=== PATIENT | female | born 1960 | race Caucasian/White ===

== ENCOUNTER 2024-07-15 14:41 | Outpatient (AMB) | payer OTHER, SELFPAY ==
[2024-07-15 14:51] VITALS: BP 138/80; PULSE 95; BMI 34.5
--- NOTE | 2024-07-15 14:51 | A.OFFVIS_ITS ---
Vital Signs 07/15/24 14:51 Height 5 ft 5 in Weight 207 lb 3.752 oz BMI 34.5 BP 138/80 Blood Pressure Location Lt brachial Position Sitting Pulse 95 Pulse Source Monitor Intake Visit Reasons: [employer]/Dr. Shoemaker/Abnormal stress test Allergies No Known Allergies Allergy (Verified 07/15/24 15:00) Medication List - Last Reconciled 07/15/24 by Esau Gomes MD amlodipine-valsartan 5-160 mg 1 tab PO DAILY aspirin 81 mg PO DAILY hyoscyamine sulfate 1 mL PO Q4-6H PRN meclizine 25 mg PO DAILY PRN rosuvastatin 20 mg PO DAILY tramadol 50 mg PO DAILY HPI Comments Details: Ivanna is here for consultation regarding an abnormal stress test. Patient herself does not have any known cardiac issues including coronary disease or myocardial infarction or cardiomyopathy. She states that she gets some occasional fluttering but no clear-cut symptoms like angina or shortness of breath. It seems that she underwent regadenoson perfusion imaging at [facility]. In that study, symptoms reported as transient lightheadedness and the baseline EKG was abnormal with a question of old anteroseptal infarct. Perfusion part reported to have possible small area of scar/infarct of the apical anterior wall. Hence she is referred here. On today's EKG however, she has a left bundle-branch block pattern. She is not aware of this. Otherwise, no clear-cut symptoms as described above. [facility] Medical History (Updated 07/15/24 @ 15:42 by Esau Gomes MD) Primary hypertension Surgical History (Updated 07/15/24 @ 15:04 by Tyra Melgar) H/O: hysterectomy H/O eye surgery H/O knee surgery Family History (Updated 07/15/24 @ 15:05 by Tyra Melgar) Mother Breast cancer Father No problems noted. Social History (Updated 07/15/24 @ 15:05 by Tyra Melgar) Alcohol intake: never Patient Tobacco Use Status: Never used Tobacco Review of Systems Const Denies weakness ENT Denies dizziness Card Denies chest pain with activity, Denies syncope, Denies rapid heart rate, Denies pedal edema, Denies edema, Denies leg edema, Denies lightheadedness, Reports palpitations, Denies dyspnea, Denies dyspnea on exertion and Denies orthopnea Resp Denies cough, Denies dyspnea and Denies dyspnea on exertion GI Denies hematochezia and Denies change in stool character Musc Denies abnormal gait, Denies muscle cramps, Denies muscle weakness, Denies numbness, Denies radiating pain into limb and Denies tingling Neuro Denies abnormal gait, Denies dizziness, Denies syncope, Denies numbness, Denies tingling and Denies weakness Endo Reports palpitations Physical Exam Vital Signs: Last Vital Signs Pulse 95 07/15/24 14:51 BP 138/80 07/15/24 14:51 BMI result Body Mass Index 34.5 Const General: comfortable and no acute distress Orientation/consciousness: patient oriented x3 HEENT Other: Unremarkable Head: Yes normal to inspection Neck Neck: Yes normal visual inspection Chest Chest palpation & inspection: normal inspection of the chest Resp Auscultation: clear to auscultation bilaterally Cardio Palpation: normal PMI Heart sounds: S1 normal heart sound present, S2 normal heart sound present, no gallops, Murmur heart sound present systolic II/ and no rubs GI Palpation (GI): Soft to palpation Back/Spine/Pelvis Other: unremarkable Skin General skin exam: no rashes or lesions noted Neuro General: patient oriented x3 Extrem General: Yes normal to inspection Psych Mental Status: mental status grossly normal Office Procedures EKG Details: EKG with underlying sinus rhythm, left bundle-branch block pattern. 95/Min. 05167-[id number], Complete Assessment & Plan Assessment & Plan (1) LBBB (left bundle branch block): Code(s): I44.7 - Left bundle-branch block, unspecified Category: Medical (2) Abnormal myocardial perfusion study: Code(s): R94.39 - Abnormal result of other cardiovascular function study Category: Medical (3) Primary hypertension: Code(s): I10 - Essential (primary) hypertension Category: Medical Plan In the EKG from 04/2024, sinus rhythm/left bundle-branch block. Today's EKG loo ks similar. Myocardial perfusion imaging study from [facility], 02/2024 shows possible scar/infarct apical anterior wall. No clear reversible defects. Gated LVEF was 64% at stress and 73% at rest. Overall, not clear if she has a true defect versus artifact. Findings discussed with patient. Especially with left bundle-branch block, it is appropriate to assess this further. We will get a coronary CTA for further evaluation. Patient agrees with that. We will also get an echocardiogram for aortic valve murmur. Follow-up after the above. Plan discussed with patient and she agrees. Orders: Orders Basic Metabolic Panel Today I44.7 - Left bundle-branch block, unspecified CT Cardiac Coronary Angio Today I25.10 - Atherosclerotic heart disease of [place] coronary artery without angina pectoris, I44.7 - Left bundle-branch block, unspecified CA echo transthoracic complete Today I44.7 - Left bundle-branch block, unspecified Coding Level of Care Code New Pt Level 4 (57153) Diagnoses LBBB (left bundle branch block) I44.7 Abnormal myocardial perfusion study R94.39 Primary hypertension I10 CPT Codes EKG - CPT: 21566-Muafjdiionejuwdxj, Complete ([id number])
== END 2024-07-15 15:28 | disposition home or self-care (01) ==
PROVIDERS: PCP Family Medicine; Visit Provider Internal Medicine
DX: I44.7 Left bundle-branch block, unspecified (principal); R94.39 Abnormal result of other cardiovascular function study; I10 Essential (primary) hypertension
CPT/HCPCS: 93010; 99204

== ENCOUNTER → 2024-07-15 14:41 | Outpatient (BNVA) | payer OTHER, SELFPAY | PROVIDERS: PCP Family Medicine; Visit Provider Internal Medicine | DX: I44.7 Left bundle-branch block, unspecified (principal); R94.39 Abnormal result of other cardiovascular function study; I10 Essential (primary) hypertension | CPT/HCPCS: 93005 ==

== ENCOUNTER → 2024-08-03 14:46 | Outpatient (REF) | payer OTHER, SELFPAY ==
--- NOTE | 2024-08-03 14:48 | CA_ITS ---
Transthoracic Echocardiogram Patient (Last, First, Middle): Ivanna Agudelo, Gender: Female Date of : 1960 Age: 64 Procedure Date: 08/03/2024 Procedure Type: Transthoracic Echocardiogram Location: OP Height: 165.1 cm Weight: 92.99 kg BSA: 2.00 m2 Heart Rate: bpm BP: 110 / 60 mmHg Assignment Desk Editor: Referring MD: Esau Gomes MD Symptoms: I44.7 - Left bundle-branch block, unspecified Study Quality: Adequate ECG Rhythm: Sinus, LBBB Conclusions: - The left ventricular systolic function is low normal. The visually estimated ejection fraction is between 50-55%. - There is moderate calcification of the aortic valve. There is mild aortic valve stenosis. Findings Procedure Information Contrast agent, definity, is being given per protocol without apparent complications. Left Ventricle Normal left ventricular cavity size. There is mildly increased left ventricular wall thickness. The left ventricular systolic function is low normal. The visually estimated ejection fraction is between 50-55%. There is paradoxical septal motion consistent with a left bundle branch block. Diastolic function is normal for age. Question of small apical septal/ apical aneurysm, but there is still contractility in that area. Hence could also be artifactual. Right Ventricle Mildly increased right ventricular cavity size. There is normal right ventricular systolic function. Atria The left atrium is moderately dilated. The right atrium is mildly dilated. Aortic Valve There is moderate calcification of the aortic valve. There is mild aortic valve stenosis. There is no aortic valve regurgitation. Mitral Valve The mitral valve appears normal. There is mild mitral annular calcification. There is trace mitral valve regurgitation. There is no mitral valve stenosis. Pulmonic Valve The pulmonic valve is likely normal. Tricuspid Valve There is mild tricuspid valve regurgitation. There is no evidence of pulmonary hypertension. Great Vessels The asc aorta is normal in size. Venous The inferior vena cava is normal in size and collapses greater than 50% with inspiration. Pericardium/Pleural There is no evidence of pericardial effusion. Prior Study Comparison No significant change compared to prior study dated: 11/03/2023. (performed at [facility]) Measurements 2D Linear Measurements IVSd: 1.09 0.6-0.9/0.6-1.0 cm LVIDd: 4.62 3.9-5.3/4.2-5.9 cm LVIDd Index: 2.31 2.4-3.2/2.2-3.1 cm/m2 LVIDs: 2.94 2.0-3.6 cm LVPWd: 1.09 0.7-1.1 cm Ao Root: 2.50 2.1-3.5 cm LA Diam: 5.30 2.7-3.8/3.0-4.0 cm LAIDs Index: 2.65 1.5-2.3 cm/m2 LV Mass: 224.45 67-162/88-224 g LV Mass Index: 112.23 43-95/49-115 g/m2 LVOT Diam: 2.00 3.0+(-)1.3 cm 2D Systolic Function EF 4C: 61.30 >55% EF 2C: 55.60 >55% EF BiP: 58.80 >55% Mitral Valve MV Pk E: 0.62 MV PK A: 0.80 MV Decel Time: 146.00 E/A: 0.80 E'Lateral: 9.68 E'Medial: 5.55 E/E' Med: 11.20 E/E' Lat: 6.40 PHT: 43.00 MVA PHT: 5.[address] [place]: 4.28 Aortic Valve AoV Pk Antoni: 2.49 AoV Mn Antoni: 1.66 AoV VTI: 0.59 AoV Pk Grad: 25.00 Aov Mn Grad: 13.00 GLADIS Cont.VTI: 1.56 LVOT LVOT Pk Antoni: 1.31 LVOT Mn Antoni: 0.94 LVOT VTI: 0.30 LVOT Pk Grad: 7.00 LVOT Mn Grad: 4.00 LVOT Diam: 2.00 LVOT Area: 3.14 Diastolic Function MV Pk E: 0.62 MV Pk A: 0.80 E/A: 0.80 E'Medial: 5.55 E/E' Med: 11.20 E' Laterial: 9.68 E/E' Lat: 6.40 Right Ventricle TAPSE (mm): 29.00 TVS' Antoni: 12.00 Tricuspid Valve TR Pk Antoni: 2.23 TR Pk Grad: 20.00 RA Press: 3.00 RVSP: 23.00 Great Vessels Aorta Ao Root-2D: 2.50 2.0-3.7 cm Ao Asc: 3.50 2.1-3.4 cm Pulmonary Valve PV Pk Antoni: 1.29 Peak PV Grad: 7.00 Updated in Other Vendor System with Status of Final Esau Gomes MD electronically signed on 08/04/2024 1:54:13 PM with status of Final
== END ==
LOC: HO.CARD 14:46
PROVIDERS: PCP Family Medicine; Visit Provider Internal Medicine
DX: I44.7 Left bundle-branch block, unspecified (principal)
CPT/HCPCS: 93306; Q9957

== ENCOUNTER → 2024-08-03 14:48 | Outpatient (BNV) | payer OTHER, SELFPAY | PROVIDERS: PCP Family Medicine; Visit Provider Internal Medicine | DX: I35.0 Nonrheumatic aortic (valve) stenosis (principal); I36.1 Nonrheumatic tricuspid (valve) insufficiency | CPT/HCPCS: 93306 ==

== ENCOUNTER 2024-09-05 09:36 | Outpatient (REF) | payer OTHER, SELFPAY ==
[2024-09-05 10:21] LABS: Anion Gap 10 (12-20); Blood Urea Nitrogen 15 mg/dL (9-16); Calcium 10.1 mg/dL (8.4-10.2); Carbon Dioxide 28 mmol/L (22-29); Chloride 108 mmol/L (96-108); Estimated Glomerular Filt Rate > 60; Glucose Random 108 mg/dL (60-115); Potassium 4.2 mmol/L (3.3-5.1); Sodium 142 mmol/L (135-145)
== END 2024-09-05 09:37 | disposition home or self-care (01) ==
LOC: HO.LAB 09:36
PROVIDERS: PCP Family Medicine; Visit Provider Internal Medicine
DX: I44.7 Left bundle-branch block, unspecified (principal)
CPT/HCPCS: 36415; 80048

== ENCOUNTER 2024-10-15 14:24 | Outpatient (AMB) | payer OTHER, SELFPAY ==
--- NOTE | 2024-10-15 14:40 | MHC.OFFVIS ---
Vital Signs 10/15/24 14:41 Height 5 ft 5 in Weight 212 lb 1.355 oz BMI 35.3 BP 138/58 L Blood Pressure Location Lt brachial Position Sitting Pulse 94 Pulse Source Pulse Oximeter Intake Visit Reasons: followup after echo Rn Relief Charge Required: No Accompanied by: Self / Same As Patient Allergies No Known Allergies Allergy (Verified 07/15/24 15:00) Medication List - Last Reconciled 10/15/24 by Esau Gomes MD amlodipine-valsartan 5-160 mg 1 tab PO DAILY aspirin 81 mg PO DAILY meclizine 25 mg PO DAILY PRN rosuvastatin 20 mg PO DAILY tramadol 50 mg PO DAILY HPI Comments Details: Ivanna returns for follow-up. Recently seen in consultation regarding an abnormal stress test. Last time, she denied any shortness of breath but today she states she does get some shortness of breath with activity. Random chest fluttering episodes. No clear-cut angina. It seems that she underwent regadenoson perfusion imaging at [facility]. In that study, symptoms reported as transient lightheadedness and the baseline EKG was abnormal with a question of old anteroseptal infarct. Perfusion part reported to have possible small area of scar/infarct of the apical anterior wall. Hence she is referred here. EKG last time showed left bundle-branch block pattern. Subsequently, she underwent coronary CTA. Returns for follow-up. [facility] Medical History (Updated 10/15/24 @ 15:01 by Esau Gomes MD) Primary hypertension Surgical History H/O: hysterectomy H/O eye surgery H/O knee surgery Family History Mother Breast cancer Father No problems noted. Social History Alcohol intake: never Patient Tobacco Use Status: Never used Tobacco Review of Systems Const Denies chills, Denies fatigue, Denies fever(s), Denies weight gain and Denies weight loss ENT Denies dizziness Card Denies chest pain, Reports irregular heart rhythm, Denies leg edema, Denies lightheadedness, Denies palpitations, Reports dyspnea on exertion, Denies orthopnea and Denies other Resp Denies cough and Reports dyspnea on exertion GI Denies hematochezia and Denies change in stool character Musc Denies abnormal gait, Denies muscle weakness, Denies numbness, Denies radiating pain into limb and Denies tingling Neuro Denies abnormal gait, Denies dizziness, Denies numbness and Denies tingling Endo Denies fatigue and Denies palpitations Physical Exam Vital Signs: Last Vital Signs Pulse 94 10/15/24 14:41 BP 138/58 L 10/15/24 14:41 BMI result Body Mass Index 35.3 Const General: comfortable and no acute distress Orientation/consciousness: patient oriented x3 HEENT Other: Unremarkable Head: Yes normal to inspection Neck Neck: Yes normal visual inspection Chest Chest palpation & inspection: normal inspection of the chest Resp Auscultation: clear to auscultation bilaterally Cardio Palpation: normal PMI Heart sounds: S1 normal heart sound present, S2 normal heart sound present, no gallops, no murmurs and no rubs GI Palpation (GI): Soft to palpation Back/Spine/Pelvis Other: unremarkable Skin General skin exam: no rashes or lesions noted Neuro General: patient oriented x3 Extrem General: Yes normal to inspection Psych Mental Status: mental status grossly normal Assessment & Plan Assessment & Plan (1) Atherosclerotic cardiovascular disease: Code(s): I25.10 - Atherosclerotic heart disease of [place] coronary artery without angina pectoris Category: Medical (2) LBBB (left bundle branch block): Code(s): I44.7 - Left bundle-branch block, unspecified Category: Medical (3) Abnormal myocardial perfusion study: Code(s): R94.39 - Abnormal result of other cardiovascular function study Category: Medical (4) Primary hypertension: Code(s): I10 - Essential (primary) hypertension Category: Medical Plan Cardiac studies reviewed. In the EKG from 04/2024, sinus rhythm/left bundle-branch block. Recent EKGs similar. Myocardial perfusion imaging study from [facility], 02/2024 shows possible scar/infarct apical anterior wall. No clear reversible defects. Gated LVEF was 64% at stress and 73% at rest. Coronary CTA shows mixed plaque of the left main ostium, suspected 50% stenosis. Possible hemodynamically significant. Moderate stenosis of the origin of LAD. [id number] proximal circumflex stenosis. Echocardiogram with LVEF of 50-55%. There was a question of small apical septal/apical aneurysm. Moderate aortic valve calcification with mild stenosis. Similar to a prior study at [facility] from 2023. Findings discussed with patient and family member. Recommend diagnostic catheterization. They are agreeable. We will schedule this in the near future. With regard to the palpitations, obtain Holter. Continue aspirin and statins. For blood pressure, she is on amlodipine/valsartan. No changes for now. Follow-up after the above. Orders: Orders Cardiac Cath LT Diagnostic Today I25.10 - Atherosclerotic heart disease of [place] coronary artery without angina pectoris ECG 7 day holter monitor Today R00.2 - Palpitations Basic Metabolic Panel Today I25.10 - Atherosclerotic heart disease of [place] coronary artery without angina pectoris Complete Blood Count no Diff Today I25.10 - Atherosclerotic heart disease of [place] coronary artery without angina pectoris Prothrombin Time INR Today I25.10 - Atherosclerotic heart disease of [place] coronary artery without angina pectoris Coding Level of Care Code Est Pt Level 5 (69542) Complex EM visit Add On G2211 Diagnoses Atherosclerotic cardiovascular disease I25.10 LBBB (left bundle branch block) I44.7 Abnormal myocardial perfusion study R94.39 Primary hypertension I10
[2024-10-15 14:41] VITALS: BP 138/58; PULSE 94; BMI 35.3
== END 2024-10-15 15:19 | disposition home or self-care (01) ==
PROVIDERS: PCP Family Medicine; Visit Provider Internal Medicine
DX: I25.10 Atherosclerotic heart disease of native coronary artery without angina pectoris (principal); I44.7 Left bundle-branch block, unspecified; R94.39 Abnormal result of other cardiovascular function study; I10 Essential (primary) hypertension
CPT/HCPCS: 99215

== ENCOUNTER → 2024-10-15 14:24 | Outpatient (BNVA) | payer OTHER, SELFPAY | PROVIDERS: PCP Family Medicine; Visit Provider Internal Medicine ==

== ENCOUNTER → 2024-10-23 14:31 | Outpatient (REF) | payer OTHER, SELFPAY | LOC: HO.CARD 14:31 | PROVIDERS: PCP Family Medicine; Visit Provider Internal Medicine | DX: R00.2 Palpitations (principal) | CPT/HCPCS: 93242 ==

== ENCOUNTER → 2024-10-23 14:34 | Outpatient (BNV) | payer OTHER, SELFPAY | PROVIDERS: PCP Family Medicine; Visit Provider Internal Medicine Cardiovascular Disease | DX: I48.91 Unspecified atrial fibrillation (principal) | CPT/HCPCS: 93244 ==

== ENCOUNTER 2024-11-07 09:34 | Outpatient (REF) | payer OTHER, SELFPAY ==
[2024-11-07 11:02] LABS: Hematocrit 38.4 % (37.0-47.0); Hemoglobin 12.8 g/dl (12.0-16.0); Mean Corpuscular HGB Conc 33.3 g/dl (31.0-35.0); Mean Corpuscular Hemoglobin 29.5 pg (27.0-33.0); Mean Corpuscular Volume 88.5 fL (80.0-98.0); Mean Platelet Volume 9.3 fL (9.4-12.3); Platelet Count 290 X10*3/uL (160-400); Red Blood Count 4.34 X10*6/uL (4.20-5.50); Red Cell Distribution Width 12.8 % (11.0-16.0); White Blood Count 6.1 X10*3/uL (4.8-10.8)
[2024-11-07 11:09] LABS: Prothrombin Time 11.7 SEC (10.9-12.4)
[2024-11-07 12:04] LABS: Anion Gap 13 (12-20); Blood Urea Nitrogen 17 mg/dL (9-16); Calcium 9.5 mg/dL (8.4-10.2); Carbon Dioxide 25 mmol/L (22-29); Chloride 108 mmol/L (96-108); Estimated Glomerular Filt Rate > 60; Glucose Random 91 mg/dL (60-115); Sodium 142 mmol/L (135-145)
== END 2024-11-07 09:35 | disposition home or self-care (01) ==
LOC: HO.LAB 09:34
PROVIDERS: PCP Family Medicine; Visit Provider Internal Medicine
DX: I25.10 Atherosclerotic heart disease of native coronary artery without angina pectoris (principal)
CPT/HCPCS: 36415; 80048; 85027; 85610

== ENCOUNTER → 2024-11-10 23:59 | Outpatient (BNV) | payer OTHER, SELFPAY | PROVIDERS: PCP Family Medicine; Visit Provider Internal Medicine Cardiovascular Disease | DX: I20.89 Other forms of angina pectoris (principal); R93.1 Abnormal findings on diagnostic imaging of heart and coronary circulation | CPT/HCPCS: 92978; 93458; 93571; 99152 ==

== ENCOUNTER 2024-11-25 13:38 | Outpatient (AMB) | payer OTHER, SELFPAY ==
--- NOTE | 2024-11-25 13:52 | A.OFFVIS_ITS ---
Vital Signs 11/25/24 13:53 Height 5 ft 5 in Weight 216 lb 7.903 oz BMI 36.0 BP 132/60 Blood Pressure Location Lt brachial Position Sitting Pulse 86 Pulse Source Pulse Oximeter Intake Visit Reasons: 2wk f/up cath 11/10 Chief Transfer And Pumphouse Operator Required: Yes Chief Transfer And Pumphouse Operator Services: Chief Transfer And Pumphouse Operator Offered & Declined Chief Transfer And Pumphouse Operator Name: Daughter in law will interpret Accompanied by: Family/Other Allergies No Known Allergies Allergy (Verified 07/15/24 15:00) Medication List - Last Reconciled 11/25/24 by Russell Nazario NP amlodipine-valsartan 5-160 mg 1 tab PO DAILY aspirin 81 mg PO DAILY meclizine 25 mg PO DAILY PRN rosuvastatin 20 mg PO DAILY tramadol 50 mg PO DAILY HPI Comments Details: This is a 64-year-old female patient presenting for a follow-up visit accompanied by her daughter. The patient has history of hypertension and was previously seen in the office for an abnormal stress test. Following that, she underwent a coronary CTA and a Holter monitor, which were both abnormal. She was subsequently referred for cardiac catheterization which she had [address] Robles at [facility]. Today, the patient reports still experiencing palpitations along with shortness of breath on exertion and fatigue. Patient has a cardia mobile device at home that shows that she has been having some arrhythmias. Patient is otherwise denying any exertional chest pain, dizziness, orthopnea, PND, leg edema, presyncope, or syncope. The patient states she has been compliant with all her medications. COUNTS INCLUDE 234 BEDS AT THE [facility] Medical History Primary hypertension Surgical History H/O: hysterectomy H/O eye surgery H/O knee surgery Family History Mother Breast cancer Father No problems noted. Social History Alcohol intake: never Patient Tobacco Use Status: Never used Tobacco Review of Systems Const Denies chills, Denies fatigue, Denies fever(s), Denies weight gain and Denies weight loss ENT Denies dizziness Card Denies chest pain, Denies leg edema, Denies lightheadedness, Reports palpitations, Denies dyspnea on exertion, Denies orthopnea and Denies other Resp Denies cough and Denies dyspnea on exertion GI Denies hematochezia and Denies change in stool character Musc Denies abnormal gait, Denies muscle weakness, Denies numbness, Denies radiating pain into limb and Denies tingling Neuro Denies abnormal gait, Denies dizziness, Denies numbness and Denies tingling Endo Denies fatigue and Reports palpitations Physical Exam Vital Signs: Last Vital Signs Pulse 86 11/25/24 13:53 BP 132/60 11/25/24 13:53 BMI result Body Mass Index 36.0 Const General: cooperative, healthy appearing, comfortable and no acute distress Orientation/consciousness: patient oriented x3 HEENT Head: Yes normal to inspection Neck Neck: Yes normal visual inspection, Yes trachea midline and Yes supple Chest Chest palpation & inspection: normal inspection of the chest Resp Effort & Inspection: normal respiratory effort Auscultation: clear to auscultation bilaterally, no crackles, no rales, no rhonchi and no wheezes Cardio Jugular venous distension: no JVD Palpation: normal PMI Rate: regular rate Rhythm: regular rhythm Heart sounds: S1 normal heart sound present, S2 normal heart sound present, no click, no gallops, no murmurs and no rubs Peripheral pulses: Peripheral pulses 2+ throughout GI Inspection: Yes normal to inspection Palpation (GI): Soft to palpation Auscultation: normal bowel sounds Skin General skin exam: no rashes or lesions noted Neuro General: patient oriented x3 Extrem General: Yes normal to inspection, No no pedal edema and No calf tenderness Psych Appearance: grossly normal Mental Status: mental status grossly normal Speech and movement: Normal speech and movement present Office Procedures EKG Details: EKG today showed sinus rhythm with a first-degree AV block, 67 beats per minute, right bundle branch block, left anterior fascicular block, nonspecific ST and T- wave abnormalities, [place] 240 milliseconds, [place]. [id number], Complete Assessment & Plan Assessment & Plan (1) Paroxysmal A-fib: Code(s): I48.0 - Paroxysmal atrial fibrillation Category: Medical Plan: 08/03/2024-patient underwent an echocardiogram which showed a low normal EF between 50-55%, with moderate calcification of the aortic valve and mild aortic valve stenosis. 10/23/2024-Holter study showed normal sinus rhythm with an average heart rate of 66 beats per minute, frequent PACs with a total burden of 1.3%, intermittent AFib with burden of 7.5%, lasting over 9 hours with the fastest heart rate in the 130s. Patient's presenting symptoms may be related to the AFib. We will initiate patient on Eliquis 5 mg twice daily for full anticoagulation therapy, given the patient's CHADSVasc score of 3. Discussed the risk of stroke associated with AFib. We will periodically monitor labs. Denies any falls or bleeding issues in the past. EKG today reveals sinus rhythm with a first-degree AV block and right bundle branch. Previous EKGs showed a left bundle branch block. We will start the patient on a low-dose metoprolol for rate control approach. Given the first- degree heart block, not much room at this time. We will refer patient to EP at [facility] for a possible ablation procedure. The procedure along with its indications, benefits, and risks was thoroughly discussed with the patient and her daughter. (2) Status post cardiac catheterization: Code(s): Z98.890 - Other specified postprocedural states Category: Surgical Plan: 11/10/2024-patient underwent cardiac catheterization with Dr. Robles at [facility]. Patient with ostial LAD calcification with a approximately 40% stenosis. iFR of LAD which was normal at 0.92. Patient was advised to start aspirin therapy we will stop this now and have her on the Eliquis. Right wrist catheterization site is well healed. Continue statin therapy. LDL goal less than 70. We will repeat lipid panel in 3 months. (3) Atherosclerotic cardiovascular disease: Code(s): I25.10 - Atherosclerotic heart disease of [place] coronary artery without angina pectoris Category: Medical Plan: As above. (4) Primary hypertension: Code(s): I10 - Essential (primary) hypertension Category: Medical Plan: Blood pressure today is well controlled. Continue current regimen. Advised patient to monitor blood pressures at home and to keep a log of it. Ideally, blood pressure goal less than 130/80. Advised patient to continue with the heart healthy diet, regular exercise, losing weight, and aggressive management of vascular risk factors. Patient will follow-up in 3 months. In the interim, patient will call the office with any concerns or change in symptoms. This note was generated using voice recognition software. While every effort has been made to ensure accuracy and proper teller vault, there may be occasional errors that could affect the content or meaning of the described symptoms. Orders: Orders Lipid Panel 3 Months I48.0 - Paroxysmal atrial fibrillation AMB EKG-In Office Today I48.0 - Paroxysmal atrial fibrillation Complete Blood Count no Diff 3 Months I48.0 - Paroxysmal atrial fibrillation Basic Metabolic Panel 3 Months I48.0 - Paroxysmal atrial fibrillation Referrals Cardiac Electrophysiology Referral I48.0 - Paroxysmal atrial fibrillation Medications: New metoprolol succinate ER 25 mg PO DAILY 90 tabs 3RF apixaban 5 mg PO BID 60 tabs 3RF Coding Level of Care Code Est Pt Level 5 (59667) Complex EM visit Add On G2211 Diagnoses Paroxysmal A-fib I48.0 Status post cardiac catheterization Z98.890 Atherosclerotic cardiovascular disease I25.10 Primary hypertension I10 CPT Codes EKG - CPT: 64115-Ccysuptskqfgllkxk, Complete ([id number]) Time Spent (min) 42 Comment Time spent in reviewing the chart, test results, assessment, counseling and documentation.
[2024-11-25 13:53] VITALS: BP 132/60; PULSE 86; BMI 36.0
== END 2024-11-25 14:44 | disposition home or self-care (01) ==
LOC: HO.HCS 13:38
PROVIDERS: PCP Family Medicine
DX: I48.0 Paroxysmal atrial fibrillation (principal); Z98.890 Other specified postprocedural states; I11.9 Hypertensive heart disease without heart failure; I25.10 Atherosclerotic heart disease of native coronary artery without angina pectoris; I44.0 Atrioventricular block, first degree; I45.2 Bifascicular block
CPT/HCPCS: 93010; 99215

== ENCOUNTER → 2024-11-25 13:38 | Outpatient (BNVA) | payer OTHER, SELFPAY | PROVIDERS: PCP Family Medicine | DX: I48.0 Paroxysmal atrial fibrillation (principal); I10 Essential (primary) hypertension; I25.10 Atherosclerotic heart disease of native coronary artery without angina pectoris; Z98.890 Other specified postprocedural states | CPT/HCPCS: 93005 ==

== ENCOUNTER 2025-03-27 08:49 | Outpatient (REF) | payer OTHER, SELFPAY ==
--- OUTSIDE RECORDS SUMMARY | 2025-03-25 07:02 | XMS_ITS | Encounter Summary ---
Author Organization [facility] Address [address] [facility] [address] [place] [address] Phone Care Team Providers Care Flight Superintendent Name Role Phone Sourav Shoemaker MD Primary Care Provider [phone] Reason for Referral * Outpatient Procedure - Closed Specialty Diagnoses / Procedures Referred By Meron raya Referred To Contact Diagnoses Cardiac murmur, unspecified Palpitations Procedures Adult Echo TTE Fredi Lemus DO [address] [address] Phone: tel: fax: [email or web address] Referral ID Status Reason Start Date Expiration Date Visits Re quested Visits Authorized [id number] Closed 03/18/2025 05/02/2025 1 1 Reason for Visit * Outpatient Procedure - Closed Specialty Diagnoses / Procedures Referred By Meron raya Referred To Contact Diagnoses Cardiac murmur, unspecified Palpitations Procedures Adult Echo TTE Fredi Lemus DO [address] [address] Phone: tel: fax: [email or web address] Referral ID Status Reason Start Date Expiration Date Visits Re quested Visits Authorized [id number] Closed 03/18/2025 05/02/2025 1 1 Encounter Details Date Type Department Care Team (Latest Contact Info) Description 03/25/2025 7:02 AM EDT - 03/25/2025 11:59 PM EDT Hospital Encounter Echo Lab [address] [place] [address] Fredi Lemus DO [address] [address] Arrived Discharge Disposition: Home or Self Care Social History Tobacco Use Types Packs/Day Years Used Date Smoking Tobacco: Never Assessed Education Answer Date Recorded Are you interested in more education? Not on pat e 01/05/2025 Are you concerned about learning? Not on file 01/05/2025 No 01/05/2025 No 01/05/2025 Digital Access Answer Date Recorded No 01/05/2025 No 01/05/2025 Reliable internet access at home? Not on file 01/05/2025 Device with a working camera? Not on file Comments Unknown Sex and Gender Information Value Date Recorded Sex Assigned at Not on file Legal Sex Female 2:56 PM EDT Gender Identity Not on file Sexual Orientation Not on file documented as of this encounter Medications at Time of Discharge amLODIPine-valsar estevez (EXFORGE) 5-160 mg per tablet Take 1 tablet by mouth every morning. 01/05/2025 ELIQUIS 5 mg tablet Take 5 mg by mouth 2 (two) times a day. 11/27/2024 rosuvastatin (CRESTOR) 20 MG tablet Take 20 mg by mouth nightly at bedtime. traMADoL (ULTRAM) 50 mg tablet Take 50 mg by mouth daily. documented as of this encounter Plan of Treatment Upcoming Encounters Date Type Department Care Team (Late st Contact Info) Description 04/05/2025 9:00 AM EDT Office Visit [facility] [place] [facility] [facility], [address] [place] [address] [phone] Rebekah Esparza DNP 22 [facility], [address] [address] 04/16/2025 7:00 AM EDT Office Visit [facility] [address] [facility] 3rd Floor, [address] [place] [address] Fredi Lemus, [address] [facility] [address] [place] [address] [email or web address] documented as of this encounter Procedures Procedure Name Priority Date/Time Associated Diagnosis Comments TTE COMPREHENSIVE Routine 03/25/2025 8:2 0 AM EDT Cardiac murmur, unspecified Palpitations documented in this encounter Results * TTE COMPREHENSIVE (03/25/2025 8:20 AM EDT) Height 165 cm Weight 101 kg Systolic BP 120 mmHg Diastolic BP 75 mmHg Interventricular Septum Thickness 12 6 - 11 mm Left Ventricle Internal Diameter End Diastole 44 37 - 52 mm Left Ventricle Internal Diameter End Systole 30 <35 mm Left Ventricular Outflow Tract Diameter 19.0 mm Left Ventricular Posterior Wall Thickness 12 6 - 11 mm Left Ventricle Ea Lateral Wave Speed 13.1 cm/s Left Ventricle Ea Septal Wave Speed 6.5 cm/s Ejection Fraction 60 50 - 75 Percent Left Atrium Dimension Anterior-Posterior 45 15 - 40 mm Aortic Valve Mean Gradient 14 mmHg Aortic Valve Time Velocity Integral 563.0 mm Aortic Valve Peak Velocity 2.5 m/s Aortic Valve Peak Gradient 25 mmHg Aortic Arch Diameter 27 mm Aortic Sinus Diameter 29 <40 mm Ascending Aorta Diameter 37 <36 mm Inferior Vena Cava Diameter 15 <21 mm Mitral Valve Deceleration Time 204 ms Left Ventricle A Wave Speed 65.1 cm/s Left Ventricle E Wave Speed 74.1 cm/s Mitral Valve Mean Gradient 1 mmHg Mitral Valve Peak Gradient 2 mmHg Mitral Valve Area Continuity Equation 3.10 cm2 Pulmonary Valve Peak Velocity 1.4 m/s Pulmonary Valve Peak Gradient 7 mmHg Right Ventricle Basal Diameter 36 25 - 41 mm Tricuspid Valve Peak Velocity 2.8 m/s Raw LV EF% 54 % MV E/E' Tissue Velocity Lateral 5.66 Relative Wall Thickness 0.55 0.22 - 0.42 MV E/A ratio 1.1 MV E/e' septal 11.40 Left Ventricle E/e' Average 8.5 Aortic Valve Prosthetic Peak Gradient 25 mmHg Aortic Valve Prosthetic Mean Gradient 14 mmHg Aorta Sinus Index by Height 1.76 cm/m Aorta Sinus CSA index by Height 4.00 cm2/m Asc Aorta CSA Index by Height 6.51 cm2/m Mitral Valve Prosthetic Peak Gradient 2 mmHg Mitral Valve Prosthetic Mean Gradient 1 mmHg Right Ventricle to Right Atrium Pressure Gradient 31 mmHg Right Ventricle Peak Systolic Pressure (Assuming RAP 10) 41 mmHg MGB CV ECHO TV RVSP (ASSUMING RAP OF 5) 36 mmHg RVSP (Exclusive of RAP) 31 mmHg Pulmonic Valve Prosthetic Peak Gradient 7 mmHg Echo E/Ea 11.40 Body Surface Area 2.07 m2 Left Atrial Volume Index 35 16 - 34 mL/m2 Right Ventricle Peak Systolic Pressure 34 mmHg Left Ventricle indexed to BSA 92.4 g/m2 Left Atrial Volume 72 mL Left Atrial Volume Index by Height 44 mL/m LVOT VTI REST 32.0 cm Aortic Valve Sinus Index by BSA 14 mm/m2 Ascending Aorta Index 18 mm/m2 Right Atrium Pressure Estimated 3 mmHg Ascending Aorta Index 18 mm Aortic Sinus Index 14 mm Ascending Aorta Diameter 18 mm Aortic Valve Sinus Index 1 14 19 - 27 mm AO ASC DIAM BSA INDEX 17.87 Anatomical Region Laterality Modality Heart Ultrasound Narrative 03/26/2025 12:31 PM EDT Images from the original result were not included. Mild LVH with normal LV systolic function EF 55 to 60%. PA pressure estimation is the upper limits of normal at 35 mmHg. Normal RV size and function. 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 Mild left atrial enlargement. Normal diastolic function for age. There is mild aortic stenosis peak velocity 2.5 m/s mean gradient 14 mmHg. There is trace aortic insufficiency. There is mild mitral regurgitation. Left Ventricle The left ventricle is normal in size. There is mild concentric hypertrophy. The interventricular septal thickness is 12 mm. The LV posterior wall thickness is 12 mm. There is normal left ventricular systolic function. The LV ejection fraction is 60% (calculated via biplane measurement). LV diastolic function appears within normal limits for age. The E wave velocity is 74.1 cm/s. The A wave velocity is 65.1 cm/s. The E/A ratio is 1.1. The e' septal wave velocity is 6.5 cm/s. The e' lateral wave velocity is 13.1 cm/s. The average E/e' ratio is 8.5. Right Ventricle The right ventricle is normal in size. There is normal right ventricular systolic function. Left Atrium The left atrium is mildly dilated. The left atrial anterior-posterior dimension is 45 mm. The left atrial volume index by BSA is 35 mL/m2. Right Atrium The right atrium is normal in size. The IVC is normal in size. Mitral Valve There is moderate thickening of both mitral leaflets. There is mitral annular calcification. There is no mitral stenosis. There is mild mitral regurgitation. Tricuspid Valve The tricuspid valve appears normal. There is no tricuspid stenosis. There is mild tricuspid regurgitation. The RV systolic pressure was calculated at 34 mmHg (using TR peak velocity of 2.8 m/s and assuming an RA pressure of 3 mmHg). Aortic Valve The aortic valve is tricuspid. Multiple leaflets are mildly thickened. There is leaflet calcification. There is [id number] aortic stenosis. The aortic valve peak velocity is 2.5 m/s. The peak and mean aortic valve gradients are 25 mmHg and 14 mmHg respectively. The left ventricular outflow tract velocity time integral is 32.0 cm. There is trace aortic regurgitation. The ascending aorta is mildly dilated. The ascending aortic diameter is 37 mm. Pulmonic Valve The pulmonic valve appears normal. There is no pulmonic stenosis. There is trace pulmonic regurgitation. Pericardium The pericardium appears normal. There is no pericardial effusion. General Findings The image quality was fair (3). Technique(s) used in the evaluation: Multiplane, Color flow Doppler and Spectral Doppler. The predominant rhythm during the study was sinus. Comparison Findings There are no prior studies for comparison. Compared to prior TTE, IAS/IVS The interatrial septum appears normal. 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 There is no evidence of patent foramen ovale (PFO) by Doppler. Fredi Lemus DO CV ECHO ORDERABLES Final Resu lt documented in this encounter Visit Diagnoses Diagnosis Cardiac murmur, unspecified Palpitations documented in this encounter Care Teams Flight Superintendent Relationship Specialty Start Date End Date Sourav Shoemaker MD [address] [facility] [address] [place] [address] PCP - General Family Medicine 01/05/25 documented as of this encounter Additional Source Comments The information contained in this document represents components of the legal health record. It is not the complete legal health record.[facility]
--- OUTSIDE RECORDS SUMMARY | 2025-03-27 08:52 | XMS_ITS | Patient Health Record ---
Author [facility] [place] Address [address] [place] [address] [place] [address] Care Team Providers Care Sewer Pipe Cleaner Name Role Phone Eduardo Zaidi MD Primary Care Provider Unavailab kvng Brie Garcia Unavailable [phone] Reason For Referral No Information Medications Medication SIG (Take, Route, Fr equency, Duration) Notes Start Date End Date Status Vicodin Active Acetaminophen-Codeine Active Neurontin Active Compression Stockings Active Ibuprofen 800 MG 1 tablet Orally ever y 12 hrs; Duration: 30 days 05/24/2011 Active LamISIL Active Naprosyn Active Meclizine HCl Active Problems No Known Problems Plan Of Treatment No Information Insurance Providers Payer Name Payer Address Payer Phone Subscriber Number Group Number Insured Name Patient Relationship to Insured Coverage Start Date Coverage End Date [facility] [address] [facility] [id number] Ivanna Fang Self - patient is the insured Medical (General) History Medical History History ICD Code headaches/migraines Surgical History Surgery Date(Month/Year) knee surgery 2009
[2025-03-27 10:41] LABS: Cholesterol 122 mg/dL (<200); HDL Cholesterol 48 mg/dL (>40); Triglycerides 96 mg/dL (<150)
== END 2025-03-27 08:50 | disposition home or self-care (01) ==
LOC: HO.LAB 08:49
PROVIDERS: PCP Family Medicine; Visit Provider Internal Medicine Cardiovascular Disease
DX: I48.91 Unspecified atrial fibrillation (principal)
CPT/HCPCS: 36415; 80061

== ENCOUNTER 2025-04-20 14:04 | Outpatient (AMB) | payer OTHER, SELFPAY ==
--- NOTE | 2025-04-20 14:50 | MHC.OFFVIS ---
Vital Signs 04/20/25 14:51 Height 5 ft 5 in Weight 204 lb 2.369 oz BMI 34.0 BP 120/72 Blood Pressure Location Lt brachial Position Sitting Pulse 87 Pulse Source Pulse Oximeter Intake Visit Reasons: R/S 02/17/25 3 mos followup Intake Note: r/s 3 mth f.up Roundhouse Supervisor Required: No Accompanied by: Self / Same As Patient Allergies No Known Allergies Allergy (Verified 07/15/24 15:00) Medication List - Last Reconciled 04/20/25 by Russell Nazario NP amlodipine-valsartan 5-160 mg 1 tab PO DAILY apixaban (Eliquis) 5 mg PO BID meclizine 25 mg PO DAILY PRN rosuvastatin 20 mg PO DAILY tramadol 50 mg PO DAILY HPI Comments Details: This is a 64-year-old female patient coming in for a follow-up visit. Patient with a history of hypertension, paroxysmal AFib, and coronary artery disease. Patient previously had a abnormal stress test and underwent a cardiac catheterization. Patient still had ongoing symptoms of shortness of breath and fatigue feeling with palpitations and therefore underwent a Holter study that showed AFib burden of 7.5%. Patient was subsequently referred out to cardiac stem roller to discuss possible catheter ablation. Patient states that she saw EP at [facility] back in April and is awaiting an appointment for catheter ablation. Today, patient reports unchanged symptoms and is looking forward to the ablation. Patient is otherwise denying any exertional chest pain, dizziness, orthopnea, PND, leg edema, presyncope or syncope. Patient is reporting compliance with all her medications. [facility] Medical History Primary hypertension Surgical History H/O: hysterectomy H/O eye surgery H/O knee surgery Family History Mother Breast cancer Father No problems noted. Social History Alcohol intake: never Patient Tobacco Use Status: Never used Tobacco Review of Systems Const Denies chills, Denies fatigue, Denies fever(s), Denies frequent falls, Denies weakness, Denies weight gain and Denies weight loss ENT Denies dizziness Card Denies chest pain, Denies leg edema, Denies lightheadedness, Denies palpitations, Denies dyspnea and Denies dyspnea on exertion Resp Denies cough, Denies dyspnea and Denies dyspnea on exertion GI Denies hematochezia Musc Denies abnormal gait, Denies muscle weakness, Denies numbness, Denies radiating pain into limb and Denies tingling Neuro Denies abnormal gait, Denies dizziness, Denies frequent falls, Denies numbness, Denies tingling and Denies weakness Endo Denies fatigue and Denies palpitations Physical Exam Vital Signs: Last Vital Signs Pulse 87 04/20/25 14:51 BP 120/72 04/20/25 14:51 BMI result Body Mass Index 34.0 Const General: cooperative, healthy appearing, comfortable and no acute distress Orientation/consciousness: patient oriented x3 HEENT Head: Yes normal to inspection Neck Neck: Yes normal visual inspection, Yes trachea midline and Yes supple Chest Chest palpation & inspection: normal inspection of the chest Resp Effort & Inspection: normal respiratory effort Auscultation: clear to auscultation bilaterally, no crackles, no rales, no rhonchi and no wheezes Cardio Jugular venous distension: no JVD Palpation: normal PMI Rate: regular rate Rhythm: regular rhythm Heart sounds: S1 normal heart sound present, S2 normal heart sound present, no click, no gallops, no murmurs and no rubs Peripheral pulses: Peripheral pulses 2+ throughout GI Inspection: Yes normal to inspection Palpation (GI): Soft to palpation Auscultation: normal bowel sounds Skin General skin exam: no rashes or lesions noted Neuro General: patient oriented x3 Extrem General: Yes normal to inspection, No no pedal edema and No calf tenderness Psych Appearance: grossly normal Mental Status: mental status grossly normal Speech and movement: Normal speech and movement present Assessment & Plan Assessment & Plan (1) Paroxysmal A-fib: Code(s): I48.0 - Paroxysmal atrial fibrillation Category: Medical Plan: 08/03/2024-patient underwent an echocardiogram which showed a low normal EF between 50-55%, with moderate calcification of the aortic valve and mild aortic valve stenosis. 10/23/2024-Holter study showed normal sinus rhythm with an average heart rate of 66 beats per minute, frequent PACs with a total burden of 1.3%, intermittent AFib with burden of 7.5%, lasting over 9 hours with the fastest heart rate in the 130s. Continue Eliquis for full anticoagulation. No reported signs of bleeding or falls. Normal kidney function on recent labs. Patient was previously started on metoprolol for rate control however patient is no longer on this. Given her history of first-degree AV block, we can continue to just monitor. Patient is looking forward to the catheter ablation and we will follow-up after the procedure. (2) Status post cardiac catheterization: Code(s): Z98.890 - Other specified postprocedural states Category: Surgical Plan: 11/10/2024-cardiac catheterization showed ostial LAD calcification with a proximally 40% stenosis. IFR of LAD normal at 0.92. Continue Eliquis. Most recent LDL within goal of less than 70. Continue statin therapy. (3) Atherosclerotic cardiovascular disease: Code(s): I25.10 - Atherosclerotic heart disease of [place] coronary artery without angina pectoris Category: Medical Plan: As above. (4) Primary hypertension: Code(s): I10 - Essential (primary) hypertension Category: Medical Plan: Blood pressure is well-controlled. Continue amlodipine valsartan therapy. Advised monitoring blood pressures with a goal less than 130/80. Advised heart healthy diet, regular exercise, avoiding caffeinated beverages, stress medication strategies, med compliance, and management of vascular risk factors. Follow-up after catheter ablation. In the interim, patient will call the office with any concerns or change in symptoms. This note was generated using voice recognition software. While every effort has been made to ensure accuracy and proper cmm inspector, there may be occasional errors that could affect the content or meaning of the described symptoms. Medications: Refilled apixaban (Eliquis) 5 mg PO BID 60 tabs 5RF Coding Level of Care Code Est Pt Level 4 (94952) Complex EM visit Add On G2211 Diagnoses Paroxysmal A-fib I48.0 Status post cardiac catheterization Z98.890 Atherosclerotic cardiovascular disease I25.10 Primary hypertension I10 Time Spent (min) 32 Comment Time spent in reviewing the chart, test results, assessment, counseling and documentation.
[2025-04-20 14:51] VITALS: BP 120/72; PULSE 87; BMI 34.0
--- OUTSIDE RECORDS SUMMARY | 2025-04-20 15:26 | XMS_ITS | Patient Health Record ---
Author Organization [facility] [place] Address [address] [place] [address] [place] Blake [address] Care Team Providers Care Laboratory Sampler Name Role Phone Eduardo Zaidi MD Primary Care Provider Unavailab kvng Brie Garcia Unavailable [phone] Reason For Referral No Information Medications Medication [...] Insured Coverage Start Date Coverage End Date [facility] [address] [facility] [phone] [id number] Ivanna Fang Self - patient is the insured Medical (General) History Medical History History ICD Code headaches/migraines Surgical History Surgery Date(Month/Year) knee surgery 2009
--- OUTSIDE RECORDS SUMMARY | 2025-04-20 15:26 | XMS_ITS | Encounter Summary ---
Author Organization [facility] Address [address] [facility] [address] [place] [address] Phone Care Team Providers Care Civil Cad Tech Name Role Phone Sourav Shoemaker MD Primary Care Provider Encounter Details Date Type Department Care Team ([facility] Contact Info) Description 01/22/2025 Procedure Pass Echo Lab [address] [place] [address] Social History Tobacco Use Types Packs/Day Years [...] on file documented as of this encounter Plan of Treatment Not on file documented as of this encounter Visit Diagnoses Not on filedocumented in this encounter Care Teams Civil Cad Tech Relationship Specialty Start Date End Date Sourav Shoemaker MD [address] [facility] [address] [place] [address] PCP - General Family Medicine 01/05/25 documented as of this encounter Additional Source Comments The information contained in this document represents components of the legal health record. It is not the complete legal health record.[facility]
== END 2025-04-20 15:12 | disposition home or self-care (01) ==
LOC: HO.HCS 14:05
PROVIDERS: PCP Family Medicine
DX: I48.0 Paroxysmal atrial fibrillation (principal); Z98.890 Other specified postprocedural states; I25.10 Atherosclerotic heart disease of native coronary artery without angina pectoris; I10 Essential (primary) hypertension
CPT/HCPCS: 99214

== ENCOUNTER 2025-05-29 09:59 | Outpatient (REF) | payer OTHER, SELFPAY ==
--- OUTSIDE RECORDS SUMMARY | 2025-05-29 10:02 | XMS_ITS | Encounter Summary ---
Author Organization [facility] Address [address] [facility] [address] [place] [address] Phone Care Team Providers Care Pelt Dropper Name Role Phone Sourav Shoemaker MD Primary Care Provider [phone] Encounter Details Date Type Department Care Team ([facility] Contact Info) Description 01/22/2025 Procedure Pass Echo Lab [address] [place] [address] Social History Tobacco Use Types Packs/Day Years [...] on filedocumented in this encounter Care Teams Pelt Dropper Relationship Specialty Start Date End Date Sourav Shoemaker MD [address] [facility] [address] [place] [address] PCP - General Family Medicine 01/05/25 documented as of this encounter Additional Source Comments The information contained in this document represents components of the legal health record. It is not the complete legal health record.[facility]
--- OUTSIDE RECORDS SUMMARY | 2025-05-29 10:03 | XMS_ITS | Patient Health Record ---
Author Organization [facility] [place] Address [address] [place] [address] [place] Blake [address] Care Team Providers Care Quartz Orientator Name Role Phone Eduardo Zaidi MD Primary Care Provider Unavailab kvng Brie Garcia Unavailable [phone] Reason For Referral No Information Medications Medication [...] Insured Coverage Start Date Coverage End Date [facility] [address] [facility] [id number] Ivanna Fang Self - patient is the insured Medical (General) History Medical History History ICD Code headaches/migraines Surgical History Surgery Date(Month/Year) knee surgery 2009
--- OUTSIDE RECORDS SUMMARY | 2025-05-29 10:03 | XMS_ITS | Clinical Summary ---
Author Organization [facility] Address [address] [facility] [address] [place] [id number] Phone Care Team Providers Care Impregnation Operator Name Role Phone Sourav Shoemaker MD Primary Care Provider [phone] Allergies No known active allergies Medications ELIQUIS 5 mg tablet Take 5 mg by mouth 2 (two) times a day. 11/27/2024 Active amLODIPine-vals mai (EXFORGE) 5-160 mg per tablet Take 1 tablet by mouth every morning. 01/05/2025 Active traMADoL (ULTRAM) 50 mg tablet Take 50 mg by mouth daily. Active rosuvastatin (CRESTOR) 20 MG tablet Take 20 mg by mouth nightly at bedtime. Active Active Problems Problem Noted Date Diagnosed Date Atrial fibrillation 01/22/2025 Assessment & Plan (01/22/2025 9:15 AM EDT): Presumably she is now on anticoagulation due to a diagnosis of PAF. We need to stop the metoprolol as she has significant bradycardia and evidence of heart block. I am going to wait a month and then order an MCT monitor for a week. Cardiac murmur, unspecified 01/22/2025 Palpitations 01/22/2025 Assessment & Plan (01/22/2025 9:15 AM EDT): Asymptomatic at this time Atherosclerosis of [place] coronary artery 2024 Assessment & Plan (01/22/2025 9:15 AM EDT): At the time of catheterization done in October she had a 40% LAD stenosis Benign essential hypertension 01/22/2025 Assessment & Plan (01/22/2025 9:15 AM EDT): We need to keep an eye on this goal should be less than 130 Encounters Date Type Department Care Team Description 03/25/2025 7:02 AM EDT - 03/25/2025 11:59 PM EDT Hospital Encounter Echo Lab [address] [place] [address] Fredi Lemus, DO Discharge Disposition: Home or Self Care 03/23/2025 Telephone [facility] [address], [address] [place] [address] Jacqueline Odonnell MA 03/23/2025 Orders Only [facility] [address], [address] [place] [address] Fredi Lemus, 01/22/2025 Procedure Pass [facility] [address] [place] [address] from Last 3 Months Social History Tobacco Use Types Packs/Day Years [...] on file Sexual Orientation Not on file Last Filed Vital Signs Vital Sign Reading Time Taken Comments Blood Pressure 140/72 01/22/2025 8:28 AM EDT Pulse 43 01/22/2025 8:28 AM EDT Temperature - - Respiratory Rate - - Oxygen Saturation - - Inhaled Oxygen Concentration - - Weight 99.8 kg (220 lb) 01/22/2025 8:28 AM EDT Height 165.1 cm (5' 5 ) 01/22/2025 8:28 AM EDT Body Mass Index 36.61 01/22/2025 8:28 AM EDT Plan of Treatment Health Maintenance Due Date Last Done Comments Adult Td,Tdap Booster 1962 CREATININE LEVEL 1962 DEPRESSION SCREENING 1974 SMOKING Hx and SMOKELESS TOB ACCO SCREENING 1975 HEPATITIS C SCREENING 1980 HIV ONE-TIME SCREENING (18-6 5 YEARS) 1980 PAP SMEAR 1983 SCREENING FOR DIABETES 1997 MAMMOGRAM 2002 COLOGUARD 2007 COLONOSCOPY 2007 COLORECTAL CANCER SCREENING 2007 FIT TEST 2007 FOBT 2007 SIGMOIDOSCOPY 2007 VIRTUAL COLONOSCOPY 2007 PNEUMOCOCCAL VACCINES (50+ y ears) (1 of 1 - PCV) 2012 ZOSTER VACCINES (1 of 2) 2012 INFLUENZA VACCINE (#1) 2025 COVID-19 VACCINE (1 - 2023-2 5 season) 2025 BLOOD PRESSURE 07/25/2025 01/22/2025 RSV VACCINE (1 - 1-dose 75+ series) 2037 HEPATITIS A VACCINES Aged Out No long er eligible based on patient's age to complete this topic HIB VACCINES Aged Out No longer eligi ble based on patient's age to complete this topic MENINGOCOCCAL VACCINES (ACWY) Aged Out No longer eligible based on patient's age to complete this topic MENINGOCOCCAL VACCINES (B) Aged Out N o longer eligible based on patient's age to complete this topic Medical Devices Not on file Procedures Procedure Name Priority Date/Time Associated Diagnosis Comments TTE COMPREHENSIVE Routine 03/25/2025 8:2 0 AM EDT Cardiac murmur, unspecified Palpitations OUTSIDE MONITOR Routine 03/23/2025 2:58 PM EDT from Last 3 Months Results * TTE COMPREHENSIVE (03/25/2025 8:20 AM [...] thickened. There is leaflet calcification. There is mymd-xy-oiegijcu aortic stenosis. The aortic valve peak velocity [...] DO CV ECHO ORDERABLES Final Resu lt * Outside Monitor Report Only (03/23/2025 2:58 PM EDT) Fredi Lemus DO CV CARDIAC SERVICES ORDERABLE S Final Result from Last 3 Months Insurance Precision Through ImagingATE [employer] UNITED NAVIGATE UNITED NAVIGATE UNITED NAVIGATE [facility] Care Teams Impregnation Operator Relationship Specialty Start Date End Date Sourav Shoemaker MD [address] [address] PCP - General Family Medicine 01/05/25 Additional Source Comments The information contained in this document represents components of the legal health record. It is not the complete legal health record.[facility]
[2025-05-29 11:36] LABS: Hematocrit 39.6 % (37.0-47.0); Hemoglobin 13.3 g/dl (12.0-16.0); Mean Corpuscular HGB Conc 33.6 g/dl (31.0-35.0); Mean Corpuscular Hemoglobin 29.8 pg (27.0-33.0); Mean Corpuscular Volume 88.8 fL (80.0-98.0); NRBC Abs Auto 0.000 X10*3/uL (0.0-0.012); NRBC Pct Auto 0.0 /100WBC (0.0-0.2); Platelet Count 277 X10*3/uL (160-400); Red Blood Count 4.46 X10*6/uL (4.20-5.50); White Blood Count 6.5 X10*3/uL (4.8-10.8)
[2025-05-29 12:10] LABS: Anion Gap 13 (12-20); Blood Urea Nitrogen 13 mg/dL (9-16); Calcium 9.8 mg/dL (8.4-10.2); Carbon Dioxide 24 mmol/L (22-29); Chloride 107 mmol/L (96-108); Cholesterol 130 mg/dL (<200); Estimated Glomerular Filt Rate > 60; HDL Cholesterol 43 mg/dL (>40); Potassium 4.1 mmol/L (3.3-5.1); Sodium 140 mmol/L (135-145); Triglycerides 115 mg/dL (<150)
== END 2025-05-29 10:00 | disposition home or self-care (01) ==
LOC: HO.LAB 09:59
PROVIDERS: PCP Family Medicine
DX: Z13.6 Encounter for screening for cardiovascular disorders (principal); I48.0 Paroxysmal atrial fibrillation
CPT/HCPCS: 36415; 80048; 80061; 85027

== ENCOUNTER 2025-08-23 16:38 | Emergency (ER) | payer OTHER, SELFPAY ==
--- NOTE | ~2025-08-23 | XR_ITS ---
CLINICAL HISTORY: Fall, Pain 3 view left shoulder Comparison: None provided Findings: No acute displaced fracture or dislocation of the left shoulder. Mild osteoarthritis of the imaged AC joint with borderline widening. Mild osteoarthritis of the left glenohumeral joint by radiographs with near anatomic alignment. Mild-moderate atelectasis partially imaged in the [id number]. Left-sided cardiac device with leads partially imaged. Vascular calcifications noted. IMPRESSION: 1. No acute displaced fracture or dislocation of the left shoulder. 2. Degenerative changes, by radiographs. This document has been electronically signed by: Kvng Tran MD on 08/23/2025 21:43:31
--- NOTE | ~2025-08-23 | CT_ITS ---
CLINICAL HISTORY: fall, head injury, on apixaban CT head without contrast Comparison: None provided Findings: No intra-axial mass, midline shift, hydrocephalus, or acute hemorrhage. No significant atrophy-like change or white matter disease. There is no sinus or mastoid fluid. The orbits are unremarkable. There is no acute fracture. IMPRESSION: 1. No acute intracranial findings. This document has been electronically signed by: Donnie Sandoval MD on 08/23/2025 21:42:24
--- NOTE | ~2025-08-23 | XR_ITS ---
CLINICAL HISTORY: Fall, pain 4 view left wrist Comparison: None provided Findings: 2 mm calcification of the volar margin of the pisiform is nonspecific and concerning for acute small avulsion fracture fragment. 2. No dislocation. Mild multifocal osteoarthritis by radiographs including cystic lucencies of the imaged scaphoid. No retained metallic foreign body. IMPRESSION: 1. 2 mm calcification concerning for acute volar pisiform avulsion fracture fragment. 2. No dislocation. This document has been electronically signed by: Kvng Tran MD on 08/23/2025 21:47:19
[2025-08-23 16:43] VITALS: BP 193/87; PULSE 77; RESP 16; TEMP 36.6; O2SAT 98; BMI 35.9
[2025-08-23 18:43] VITALS: BP 138/73; PULSE 57; RESP 18; TEMP 36.9; O2SAT 97
--- OUTSIDE RECORDS SUMMARY | 2025-08-23 19:02 | XMS_ITS | Clinical Summary ---
Author Organization [facility] Address [address] [facility] [address] [place] [address] Phone Care Team Providers Care Bilingual Call Center Representative Name Role Phone Sourav Shoemaker MD Primary Care Provider [phone] Allergies No known active allergies Medications ELIQUIS [...] EDT): Asymptomatic at this time Atherosclerosis of [place] coronary artery 2024 Assessment & Plan (01/22/2025 9:15 AM EDT): At the time of catheterization done in October she had a 40% LAD stenosis Benign essential hypertension 01/22/2025 Assessment & Plan (01/22/2025 9:15 AM EDT): We need to keep an eye on this goal should be less than 130 Social History Tobacco Use Types Packs/Day Years [...] VACCINE (#1) 2025 COVID-19 VACCINE (1 - 2024-2 6 season) 2025 BLOOD PRESSURE 07/25/2025 01/22/2025 RSV [...] this topic Medical Devices Not on file Insurance Project WBS Project WBS UNITED NAVIGATE UNITED NAVIGATE UNITED NAVIGATE [employer] Care Teams Bilingual Call Center Representative Relationship Specialty Start Date End Date Sourav Shoemaker MD [address] [address] PCP - General Family Medicine 01/05/25 Additional Source Comments The information contained in this document represents components of the legal health record. It is not the complete legal health record.[facility]
--- OUTSIDE RECORDS SUMMARY | 2025-08-23 19:02 | XMS_ITS | Patient Health Record ---
Author Organization [facility] Address [address] [place] [address] JOSEFINA Blake [address] Care Team Providers Care Materials Planning Analyst Name Role Phone Eduardo Zaidi MD Primary Care Provider Unavailab kvng Brie Garcia Unavailable [phone] Reason For Referral No Information Medications Medication [...] Insured Coverage Start Date Coverage End Date [facility] [address] [facility] [address] [id number] Ivanna Fang Self - patient is the insured Medical (General) History Medical History History ICD Code headaches/migraines Surgical History Surgery Date(Month/Year) knee surgery 2009
--- OUTSIDE RECORDS SUMMARY | 2025-08-23 19:02 | XMS_ITS | Encounter Summary ---
Author Organization [facility] Address [address] [facility] [address] [place] [address] Phone Care Team Providers Care Web Search Evaluator Name Role Phone Sourav Shoemaker MD Primary Care Provider [phone] Encounter Details Date Type Department Care Team ([facility] Contact Info) Description 01/22/2025 Procedure Pass [facility] [address] [place] [address] Social History Tobacco Use Types Packs/Day Years [...] on filedocumented in this encounter Care Teams Web Search Evaluator Relationship Specialty Start Date End Date Sourav Shoemaker MD [address] [facility] [address] [place] [address] PCP - General Family Medicine 01/05/25 documented as of this encounter Additional Source Comments The information contained in this document represents components of the legal health record. It is not the complete legal health record.[facility]
[2025-08-23 20:10] VITALS: BP 148/64; PULSE 76; RESP 16; TEMP 36.7; O2SAT 94
--- NOTE | 2025-08-23 20:41 | ED.GENADULT ---
HPI - General Adult General Chief complaint: Head Injury Stated complaint: injury/trauma to head, sent from pcp Time Seen by Provider: 08/23/25 20:40 History of Present Illness ED Provider: Denisse AMARO narrative: The patient is a 65-year-old female with a history of paroxysmal atrial fibrillation who is on apixaban. She says that yesterday evening she slipped and fell at home. She was going down a carpeted stair case. She struck her head and landed on her left side. She sustained a laceration to her left forehead/scalp. She sustained an injury to her left shoulder and her left wrist. She felt very sore today and ultimately came to the hospital today. She did not go to the hospital after the fall yesterday. She says that she did not take her apixaban yesterday evening or this morning because of the bleeding from the wound on her left scalp. The bleeding has ultimately stopped. She has a headache. She has no neck pain. She has no pain with moving her neck. She has some pain with moving her left shoulder and some pain with moving her left wrist. She also says that she struck her left hip but she feels she can move her left hip fairly well. Related Data Home Medications ?Medication ?Instructions ?Recorded ?Confirmed amlodipine 5 mg-valsartan 160 mg 1 tab PO DAILY 07/15/24 04/20/25 tablet meclizine 25 mg tablet 25 mg PO DAILY PRN 07/15/24 04/20/25 rosuvastatin 20 mg tablet 20 mg PO DAILY 07/15/24 04/20/25 tramadol 50 mg tablet 50 mg PO DAILY 07/15/24 04/20/25 Previous Rx's ?Medication ?Instructions ?Recorded apixaban 5 mg tablet (Eliquis) 5 mg PO BID #60 tabs 04/20/25 Allergies Allergy/AdvReac Type Severity Reaction Status Date / Time No Known Allergies Allergy Verified 08/23/25 16:45 Review of Systems Review of Systems: Yes all other systems are reviewed and are negative [facility] Past Medical History Medical History Primary hypertension Surgical History H/O: hysterectomy H/O eye surgery H/O knee surgery Family History Family History Mother Breast cancer Father No problems noted. Social History Social History Alcohol intake: never Patient Tobacco Use Status: Never used Tobacco Advance Directives: No Advance Directives Information Provided: Yes Do you have a plan to hurt others: No Plan Physical Exam ED Vital Signs: Vital Signs - 24 hr 08/23/25 16:43 08/23/25 18:43 08/23/25 20:10 Temperature 98 F 98.4 F 98.1 F Pulse Rate 77 57 76 Respiratory Rate 16 18 16 Blood Pressure 193/87 H 138/73 148/64 H Pulse Oximetry 98 97 94 Oxygen Delivery Method Room Air Room Air Room Air BMI result Body Mass Index 35.9 Const Other: The patient is a 65-year-old woman who looks as if she is normally fairly robust. She is awake and alert with a normal mental status. She does not seem in acute distress although there was an obvious laceration to the skin of the left upper forehead near the hairline. The laceration has begun to scab over and is not bleeding. HENMT Other: There is a 4 cm curved laceration to the skin of the left upper forehead near the hairline. The wound has closed itself and is not bleeding. There was no associated erythema. There are no raccoon eyes. No wade sign. No hemotympanum. The appearance of the face itself was normal. No soft tissue swelling, no intraoral injury. Eyes Other: Pupils are round equal, conjunctivae are clear, extraocular movements intact Neck Other: No posterior midline C-spine tenderness. She has good range of motion of the neck without pain. The C-spine is clinically clear. Chest Other: No chest wall tenderness Resp Effort & Inspection: normal respiratory effort Auscultation: clear to auscultation bilaterally Cardio Rate: regular rate Rhythm: regular rhythm Heart sounds: S1 normal heart sound present and S2 normal heart sound present GI Other: Abdomen is soft and nontender Skin Other: There is a 4 cm curved closed laceration to the skin of the left upper forehead. There is some mild soft tissue swelling and bruising to the left wrist. Neuro Other: The patient is awake and alert with a normal mental status. GCS is 15. Cranial nerves are intact. She has a normal strength and sensation in her extremities. Extrem Other: The patient has some generalized tenderness of the left shoulder without deformity. Some generalized soft tissue swelling to the region of the left wrist with some ecchymosis. I can manipulate the wrist joint fairly well. There was no gross deformity. There is diffuse tenderness. She can move the joints of the left leg easily unwell. Medications Administered Discontinued Medications Generic Name Dose Route Start Last Admin Trade Name Frealan PRN Reason Stop Dose Admin Diphtheria/Tetanus/Acell Pertussis 0.5 ml 08/23/25 20:46 08/23/25 21:13 Diphth,Pertus(Acell),Tet Adult 0.5 Ml Syringe IM 08/23/25 20:47 0.5 ml .ONCE ONE Administration Medical Decision Making Medical Decision Making [facility] Narrative: The patient is a 65-year-old woman with a history of paroxysmal atrial fibrillation on apixaban who sustained a mechanical fall approximately 24 hours ago. She sustained laceration to the skin of the left upper forehead which closed itself at this point and which is probably too old to suture. I explained this to the patient. She did not want sutures any how. She has an injury to her left shoulder in her left wrist. My suspicion for an acute fracture is not terribly high but we will x-ray these joints. A CT scan of the head was done because of the patient's use of anticoagulation medication. This is negative. C-spine was clinically clear. An x-ray of the left wrist shows a tiny calcification at the volar margin of the pisiform bone which could represent a small avulsion fracture. No other findings of acute injury. An x-ray of the left shoulder showed no acute findings. The patient will be given a wrist splint. She has a sling at home that she can use to support the left arm generally. She was given a tetanus shot. She should use acetaminophen. She has requested a work note. This was provided. She should follow up with her PCP. With regard to the left wrist injury I think that even if the tiny fragment of bone is an avulsion fracture that this is essentially the of a wrist sprain and that the use of a wrist splint and follow up with PCP is appropriate. Discharge Plan Discharge Clinical Impression: Head injury, Laceration of scalp, Left wrist sprain, Contusion of left shoulder, Fall, Chronic anticoagulation Patient Disposition: Home, Self-Care Additional Instructions: Please rest for the next several days. You will likely be sore for several days. Use the splint for your left wrist for the next couple of weeks. Use the sling that you have at home on your left arm to support your left shoulder. You may use acetaminophen (Tylenol) as needed for pain. You may resume apixaban. Please contact your regular doctor's office in the morning for an appointment in the next 1-2 weeks for a recheck. Return to the emergency room if significantly worse. Prescriptions: No Action tramadol 50 mg tablet 50 mg PO DAILY amlodipine-valsartan 5-160 mg tablet 1 tab PO DAILY rosuvastatin 20 mg tablet 20 mg PO DAILY meclizine 25 mg tablet 25 mg PO DAILY PRN Eliquis 5 mg tablet 5 mg PO BID Qty: 60 5RF Referrals: Sourav Shoemaker MD [Primary Care Provider, Family Practice] Stand Alone Forms: Work/School Release Print Language: Finnish
[2025-08-23] MEDS: Diphth,Pertus(ACell),Tet Adult 0.5 ML SYRINGE IM (21:13)
[2025-08-23 22:16] VITALS: BP 119/64; PULSE 64; RESP 16; TEMP 36.8; O2SAT 95
[2025-08-23 22:40] VITALS: BP 119/64; PULSE 64; RESP 16; TEMP 36.8; O2SAT 95
== END 2025-08-23 22:40 | disposition home or self-care (01) ==
PROVIDERS: Emergency Provider Emergency Medicine; PCP Family Medicine
DX: S01.81XA Laceration without foreign body of other part of head, initial encounter (principal); S49.92XA Unspecified injury of left shoulder and upper arm, initial encounter; S69.92XA Unspecified injury of left wrist, hand and finger(s), initial encounter; I48.91 Unspecified atrial fibrillation; R51.9 Headache, unspecified; M54.2 Cervicalgia; W10.9XXA Fall (on) (from) unspecified stairs and steps, initial encounter; Y93.9 Activity, unspecified; Y92.9 Unspecified place or not applicable; Y99.8 Other external cause status; Z79.01 Long term (current) use of anticoagulants; Z79.899 Other long term (current) drug therapy; Z23 Encounter for immunization
CPT/HCPCS: 29125; 70450; 73030; 73110; 90471; 90715; 99284

== ENCOUNTER → 2025-08-23 20:50 | Outpatient (BNV) | payer OTHER, SELFPAY | PROVIDERS: Emergency Provider Emergency Medicine; PCP Family Medicine; Visit Provider Radiology Neuroradiology | DX: S09.90XA Unspecified injury of head, initial encounter (principal); M25.512 Pain in left shoulder; M19.012 Primary osteoarthritis, left shoulder; M25.532 Pain in left wrist; M25.831 Other specified joint disorders, right wrist; Z04.3 Encounter for examination and observation following other accident | CPT/HCPCS: 70450; 73030; 73110 ==